=== PATIENT | female | born 1975 | race Caucasian/White ===

== ENCOUNTER 2024-05-29 16:53 | Emergency (ER) | payer OTHER ==
[~2024-05-29] VITALS: Ht 172.7 cm; Wt 72.5 kg
[2024-05-29] VITALS (14 sets, daily range): BP systolic 118–154; BP diastolic 72–93
[2024-05-29] MEDS ORDERED: ONDANSETRON HCl 4 MG/2 ML SDV IV ONE (17:05)
[2024-05-29] MEDS ORDERED: HYDROmorphone HCL 2 MG/AMP IV ONE (17:05)
[2024-05-29 17:24] LABS: BASO% 0.3 % (0-3); EOS% 1.4 % (0-8); HEMATOCRIT 40.9 % (37.0-47.0); HEMOGLOBIN 13.6 g/dl (12.0-16.0); IMMATURE GRANULOCYTES 0.2 % (0.0-5.0); LYMPH% 27.1 % (15-41); MEAN CELL VOLUME 95.6 fL CALC (80.0-100.0); MEAN CORPUSCULAR HGB 31.8 pG CALC (26.0-32.0); MEAN CORPUSCULAR HGB CONC 33.3 g/dL CAL (32.0-36.0); MONO% 7.5 % (2-13); NEUT# 4.06 thou/uL (2.00-7.15); NEUT% 63.5 % (42-76); RED BLOOD COUNT 4.28 mill/uL (4.20-5.60); RED CELL DISTRI WIDTH 11.8 % (11.5-15.5)
[2024-05-29 17:37] LABS: ALBUMIN 4.7 g/dL (3.2-5.0); ALKALINE PHOSPHATASE 39 u/l (38-126); ANION GAP 18 (6-22 (CALC)); BILIRUBIN, TOTAL 0.5 mg/dL (0.02-1.3); BUN 12 mg/dL (7-17); BUN/CREATININE RATIO 14 (12-20 (CALC)); CARBON DIOXIDE 25 mmol/l (22-30); CHLORIDE 103 mmol/l (95-108); CREATININE 0.9 mg/dL (0.5-1.0); ESTIMATED GFR 78 ML/MIN (>=90 (CALC)); POTASSIUM 3.7 mmol/l (3.5-5.1); SGOT/AST 32 u/l (14-36); SODIUM 142 mmol/l (137-146); TOTAL PROTEIN 7.6 g/dL (6.3-8.2)
[2024-05-29] MEDS ORDERED: MORPHINE SULFATE 4 MG/ML VIAL IV ONE (18:25)
[2024-05-29] MEDS ORDERED: IBUPROFEN 600 MG/TAB PO ONE (19:45)
[2024-05-29] MEDS ORDERED: Acetaminophen 300 MG/Codeine 30 MG/COMBO PO ONE (19:45)
[2024-05-29] MEDS ORDERED: TYLENOL # 31 TA1 PO (20:01)
[2024-05-29] MEDS ORDERED: VOLTAREN - GENE75 MG PO (20:01)
== END 2024-05-29 20:20 | disposition home or self-care (01) | DRG 605 ==
LOC: ED 16:53
PROVIDERS: Family Medicine
DX: S20.211A Contusion of right front wall of thorax, initial encounter (principal); V86.69XA Passenger of other special all-terrain or other off-road motor vehicle injured in nontraffic accident, initial encounter